=== PATIENT | male | born 1985 | race Two or more races ===

== ENCOUNTER 2022-08-20 20:32 | Emergency (ER) | payer SELFPAY ==
[~2022-08-20] VITALS: Ht 170.2 cm; Wt 94.8 kg
--- NOTE | 2022-08-20 21:17 | NUR ---
BACILIO 102 FROM HOME FOR C/O GEN BODY ACHE. APPEARS INTOXICATED AND ADMITS TO DRINKING ALCOHOL. PT AWAKIE AND ALERT BREATHING UNLABORED. CHANGED INTO GOWN AND PLACED ON MONITOR AND NOTED TACHYCARDIC. LADLE FILLER WAS AT BEDSIDE FOR EVAL.
[2022-08-20] MEDS ORDERED: LORAZEPAM INJ 2 MG/ML VIAL IVP ONE (21:30)
[2022-08-20] MEDS ORDERED: IV NS 0.9% 1,000 ML BAG IV ONE (21:30)
[2022-08-20] MEDS ORDERED: ONDANSETRON 4 MG TAB.RAPDIS PO ONE (21:30)
--- NOTE | 2022-08-20 21:40 | NUR ---
20G IV STARTED AT . BLOOD DRAWN AND SENT TO LAB
[2022-08-20] MEDS ORDERED: LORAZEPAM INJ 2 MG/ML VIAL ONE (21:43)
[2022-08-20] MEDS ORDERED: ONDANSETRON 4 MG TAB.RAPDIS ONE (21:43)
[2022-08-20] MEDS ORDERED: Thiamine 100 MG/ML VIAL ONE (21:43)
[2022-08-20 22:00] LABS: BILIRUBIN,URINE 1+ (NEGATIVE); COLOR,URINE YELLOW (YELLOW); LEUKOCYTE ESTERASE ,URINE NEGATIVE (NEGATIVE); NITRITE, URINE NEGATIVE (NEGATIVE); PROTEIN,URINE NEGATIVE (NEGATIVE); UGLUCOSE 3+ mg/dL (NEGATIVE)
[2022-08-20] MEDS ORDERED: Thiamine 100 MG in IV D5W 50 ML IV SCH (22:00)
[2022-08-20 22:12] LABS: BASOPHILS # (AUTO) 0.1 K/uL (0.0-0.2); BASOPHILS % (AUTO) 0.8 % (0.0-2.0); EOSINOPHILS % (AUTO) 0.8 % (0.0-6.0); HEMATOCRIT 39 % (39-51); HEMOGLOBIN 13.9 g/dL (13.5-17.5); LYMPHOCYTES # (AUTO) 2.5 K/uL (0.8-4.8); LYMPHOCYTES % (AUTO) 41.2 % (20.0-44.0); MEAN CORPUSCULAR HGB CONC 35 g/dl (31.0-36.0); MEAN CORPUSCULAR VOLUME 96 fL (80-96); MONOCYTES # (AUTO) 0.4 K/uL (0.1-1.30); MONOCYTES % (AUTO) 6.6 % (2.0-12.0); NEUTROPHILS # (AUTO) 3.1 K/uL (1.8-8.9); NEUTROPHILS % (AUTO) 50.6 % (43.0-81.0); RED BLOOD CELL COUNT(AUTO) 4.09 MIL/uL (4.5-6.0); WHITE BLOOD COUNT (AUTO) 6.1 K/uL (4.3-11.0)
[2022-08-20 22:32] LABS: BACTERIA,URINE Rare /HPF (None Seen); RBC,URINE 0-2 /HPF (0-2); SQUAMOUS EPITHELIAL CELL,UR Few /HPF (None Seen); WBC,URINE 0-2 /HPF (0-3)
[2022-08-20 22:34] LABS: ALBUMIN 3.2 g/dL (3.4-5.0); BILIRUBIN,DIRECT 1.1 mg/dL (0.0-0.2); BILIRUBIN,TOTAL 1.5 mg/dL (0.2-1.0); CALCIUM, SERUM 8.3 mg/dL (8.5-10.1); CREATININE 0.8 mg/dL (0.6-1.3); POTASSIUM 3.1 mmol/L (3.5-5.1); TOTAL PROTEIN, SERUM 7.1 g/dL (6.4-8.2)
[2022-08-20] MEDS ORDERED: POTASSIUM CHLORIDE 20 MEQ TAB.PRT.SR PO ONE ×2 (22:58→23:00)
[2022-08-20 23:35] LABS: PLATELET COUNT (AUTO) 50 K/uL (150-450)
[2022-08-21] MEDS ORDERED: AZITHROMYCIN 250 MG TABLET PO ONE
[2022-08-21] MEDS ORDERED: GENTAMICIN 80 MG/2 ML VIAL IM ONE
[2022-08-21] MEDS ORDERED: GENTAMICIN 80 MG/2 ML VIAL ONE (00:11)
[2022-08-21] MEDS ORDERED: AZITHROMYCIN 250 MG TABLET ONE (00:12)
[2022-08-21 00:42] LABS: BASOPHILS % (MANUAL) 0 % (0.0-2.0); EOSINOPHILS % (MANUAL) 0 % (0-4); LYMPHOCYTES % (MANUAL) 33 % (16-48); MONOCYTES % (MANUAL) 6 % (0-11.0); NEUTROPHILS % (MANUAL) 61 (42-76)
[2022-08-21] MEDS ORDERED: IBUPROFEN 600 MG TABLET ONE (02:14)
[2022-08-21] MEDS ORDERED: IBUPROFEN 600 MG TABLET PO ONE (02:30)
--- NOTE | 2022-08-21 05:09 | NUR ---
PT AWAKE AND ALERT AMBULATES WITH STEADY GATE. RR EVEN AND UNLABORED.
--- NOTE | 2022-08-21 05:10 | NUR ---
Patient discharged to home in stable condition. Written and verbal after care instructions given. Patient verbalizes understanding of instruction. PT ambulatory with a steady gait IV removed. Catheter intact and site benign. Pressure and 4x4 applied to site. No bleeding noted.
[2022-08-21 06:09] VITALS: BP 121/85
== END 2022-08-21 06:09 | disposition home or self-care (01) ==
LOC: ER 20:34
DX: F10.229 Alcohol dependence with intoxication, unspecified (principal); Y90.8 Blood alcohol level of 240 mg/100 ml or more; E87.6 Hypokalemia; K76.9 Liver disease, unspecified; R73.9 Hyperglycemia, unspecified; Z20.822 Contact with and (suspected) exposure to COVID-19
CPT/HCPCS: 99284; 96365; 96375; 76700; 85025; 80048; 80076; 85007; 81001; 36415; 87426; 80143; 80320; 80307; 87491; 87591; 96372; J2060; J7060 ×2; J3411 ×2; Q0162; C9803; J1580; G0480

== ENCOUNTER 2022-10-22 13:08 | Emergency (ER) | payer SELFPAY ==
[~2022-10-22] VITALS: Ht 177.8 cm; Wt 104.3 kg
--- NOTE | 2022-10-22 13:30 | NUR ---
ETOH, BB EMS to ER after friend called 911.
--- NOTE | 2022-10-22 14:34 | NUR ---
CALLED MANUFACTURING TEAM MEMBER. NO RESPONSE.
--- NOTE | 2022-10-22 14:40 | NUR ---
CALLED SOCIAL, VINCE IS COMING
[2022-10-22] MEDS ORDERED: LORAZEPAM INJ 2 MG/ML VIAL ONE (15:03)
[2022-10-22] MEDS ORDERED: HALOPERIDOL LACTATE INJ 5 MG/ML VIAL ONE (15:03)
--- NOTE | 2022-10-22 15:05 | NUR ---
SS Note: SS consult requested for pt. who was BIBRA from home after friend, Demarco called the paramedics. The pt. is a 36 year old Croatian male who is Turkmen speaking. SW met with pt. at bedside. The pt.'s nurse who is Turkmen speaking provided translation. The pt. is alert & oriented x 3 and makes intense eye contact.The pt. has tangential speech with normal thought process. The pt. denies SI/HI and denies hallucinations. The pt. has dyshoric mood & affect. The pt. stated he does not know why he was brought to the hospital. The pt. states he has body aches possibly secondary to alcohol withdrawal. The pt. states he lives at home (refused to provide address) with a roommate. The pt. stated he drinks alcohol Vodka daily at intervals to prevent withdrawal symptoms. The pt. denies drug use. Per pt. he has been to a rehab in the past. SW provided pt. with alcohol rehab referrals and pt. threw them on the floor. SW asked pt. is there is anyone who we can contact to pick him up when ready for discharge and pt. did not provide radio time salesperson. SW will be available as needed. ELLA provided pt. with the following resources: ADDICTION RESOURCES For Drugs and Alcohol [facility] sober living Referrals For Rehabilitation once sober Address:[address] [place] [address] [facility] Rehabilitation Program [address] [place] [address] Detox/residential [facility] Substance Abuse Helpline ([facility]) Outpatient, residential treatment, recovery support for youth/adults [facility] www.actionfamilycounseling.Eyesquad [facility] Teen programs for drug/alcohol education and support [facility] [place]. Program for adults, sliding scale provides support and education [employer] www.SAMHI Hotelsation.org [place]; Detox/residential treatment programs; transition to sober living [facility] www.cri-help.org [place]; Outpatient and residential treatment programs; transition to sober living [facility] TEL: [phone] I-ADARP Inter Agency Drug Abuse Recovery Tino Lord; Outpatient education and supportive programs for teens and adults [place] [facility] www.oasiswomensrecovery.org [place]; Residential treatment and work program for females only [facility] www.phoSite Organicxwoodford.org [place]: Outpatient/residential treatment program for teens and young adults [facility] www.[facility].org [place] Detox, inpatient, outpatient for adults and youth [facility], [facility]. [facility]; Outpatient programs and referrals to community residential programs. Alcoholics Anonymous -SFV information and meeting and scheduleswww.aa-intergroup.org Mh-Xnla-Prbydbr https://al-sharla.org/ [place] support groups for family of alcoholics. Marijuana Anonymous www.madistrict6.org -SFV listing of meetings Narcotics Anonymous www.na.org SOBER LIVING RESOURCES The [facility] Network www.soberhousing.net A non-profit agency that provides resources to recovery and sober living homes throughout [facility] Men's Sober Living Homes: A Work in Progress[facility]eddy [facility] Recovery Advocates, [place] Sob[facility]George [facility] Hospital[facility] Women's Sober Living Homes: [facility] [address], [place] [facility] Coed Sober Living Homes: [facility] Counseling--Outpatient [facility] [address], [place] [address] (Specializes in in-depth psychotherapy for emotional distress: anxiety, depression, interpersonal conflicts, life transitions, childhood abuse) [facility] [address] [place] [address] (Assist with solving problem marital difficulties, separation & divorce, aging parents, & grief, chronic & terminal illness) [facility] [address] [place] [address] (Deal with loss & grief, anxiety, marital difficulties) Homebound/Mental Health Services [address] [facility] [address] [place] [address] (Provide in-home mental services to people who are incapable of leaving their homes) Organization for Needs of the Elderly Senior Service/Resource Center [address] [place] [address] [facility] [address] [place] [address] Mental Health Services [facility] [address] [place] [address] Services: Outpatient therapy for children, teens, young adults, adults, older adults, and families; Psychiatric services, medication support Psychiatric Outpatient Services [facility] Partial Hospitalization and Intensive Outpatient Program (Managed Care and [place] Only)[address] [facility] [phone] [facility] Partial Hospitalization and Outpatient Bctqlau99[address] [facility] [address] [place], [place] [phone] [facility] Vpa[address] [facility] [address] [place], [place] [phone] [facility] Partial Hospitalization and Outpatient Ouswagv10137 [place], [phone] Crisis and Hotline Telephone Numbers 24-Hour service unless stated [place] Crisis Hotlines: [employer] Mental Health/Crisis Line........[phone] Suicide Prevention Center (24 Hours).......[phone] Suicide Prevention Crisis Center.......[phone] (24 Hours) Assaults Against Women Hotline.........985.187.8939 (24 Hours -- [facility]) Women and Children Crisis [facility]...........[phone] (24 Hours) Child Abuse Hotline............374.250.8648 [facility] Treatment [facility] (24 Hours)..........[phone] Alcoholics Anonymous (24 Hours)..........[phone] Cocaine Anonymous (24 Hours)............[phone] Narcotics Anonymous (24 Hours)..........[phone] [address] [facility] [address], [place], [place] [address]
[2022-10-22] MEDS ORDERED: HALOPERIDOL LACTATE INJ 5 MG/ML VIAL IM ONE (15:30)
[2022-10-22] MEDS ORDERED: LORAZEPAM INJ 2 MG/ML VIAL IM ONE (15:30)
[2022-10-22 15:31] LABS: BASOPHILS % (AUTO) 0.5 % (0.0-2.0); EOSINOPHILS % (AUTO) 0.2 % (0.0-6.0); HEMATOCRIT 49 % (39-51); HEMOGLOBIN 16.6 g/dL (13.5-17.5); LYMPHOCYTES # (AUTO) 3.4 K/uL (0.8-4.8); LYMPHOCYTES % (AUTO) 50.5 % (20.0-44.0); MEAN CORPUSCULAR HGB CONC 34 g/dl (31.0-36.0); MEAN CORPUSCULAR VOLUME 98 fL (80-96); MONOCYTES # (AUTO) 0.4 K/uL (0.1-1.30); MONOCYTES % (AUTO) 5.5 % (2.0-12.0); NEUTROPHILS # (AUTO) 2.9 K/uL (1.8-8.9); NEUTROPHILS % (AUTO) 43.3 % (43.0-81.0); RED BLOOD CELL COUNT(AUTO) 5.01 MIL/uL (4.5-6.0); WHITE BLOOD COUNT (AUTO) 6.8 K/uL (4.3-11.0)
[2022-10-22 15:42] LABS: CALCIUM, SERUM 8.4 mg/dL (8.5-10.1); CREATININE 0.7 mg/dL (0.6-1.3); POTASSIUM 3.5 mmol/L (3.5-5.1)
[2022-10-22 15:49] LABS: ALBUMIN 3.5 g/dL (3.4-5.0); BILIRUBIN,DIRECT 0.8 mg/dL (0.0-0.2); BILIRUBIN,TOTAL 1.2 mg/dL (0.2-1.0); TOTAL PROTEIN, SERUM 7.5 g/dL (6.4-8.2)
[2022-10-22 15:51] LABS: BILIRUBIN,URINE 1+ (NEGATIVE); COLOR,URINE YELLOW (YELLOW); LEUKOCYTE ESTERASE ,URINE NEGATIVE (NEGATIVE); NITRITE, URINE NEGATIVE (NEGATIVE); PROTEIN,URINE TRACE mg/dl (NEGATIVE); UGLUCOSE NEGATIVE (NEGATIVE)
[2022-10-22 16:10] LABS: PLATELET COUNT (AUTO) 46 K/uL (150-450)
[2022-10-22 16:58] LABS: BACTERIA,URINE None seen /HPF (None Seen); RBC,URINE 0-2 /HPF (0-2); SQUAMOUS EPITHELIAL CELL,UR 0-2 /HPF (None Seen); WBC,URINE 0-2 /HPF (0-3)
[2022-10-22 17:11] LABS: LYMPHOCYTES % (MANUAL) 42 % (16-48); MONOCYTES % (MANUAL) 3 % (0-11.0); NEUTROPHILS % (MANUAL) 55 (42-76)
[2022-10-22 19:39] VITALS: BP 132/70
== END 2022-10-22 20:54 | disposition home or self-care (01) ==
LOC: ER 15:37
DX: F10.229 Alcohol dependence with intoxication, unspecified (principal); R45.1 Restlessness and agitation; K70.9 Alcoholic liver disease, unspecified; D69.6 Thrombocytopenia, unspecified; F17.200 Nicotine dependence, unspecified, uncomplicated; Z60.2 Problems related to living alone; Y90.8 Blood alcohol level of 240 mg/100 ml or more
CPT/HCPCS: 99284; 96372 ×2; 85025; 80048; 80076; 85007; 81001; 36415; 80143; 80320; 80307; J2060; J1630; G0480

== ENCOUNTER 2022-11-10 21:47 | Inpatient (IN) | payer MEDICAID ==
[~2022-11-10] VITALS: Ht 170.2 cm; Wt 94.8 kg
--- NOTE | 2022-11-10 22:15 | NUR ---
BIB FRIEND FOR C/O SI ATTEMTPING TO OD ON HIS MEDS. REQUESTING VOLUNTARY PSYCH ADMISSION. PT A/OX3. TOLERATING R/A WELL WITH NO RESP DISTRESS. CHANGED IN GOWN, BELONGINGS IN LOCKER, WANDERED BY SECURITY. SAFETY MEASURES IN PLACE.
[2022-11-10 22:48] LABS: BASOPHILS % (AUTO) 0.3 % (0.0-2.0); EOSINOPHILS % (AUTO) 0.4 % (0.0-6.0); HEMATOCRIT 43 % (39-51); HEMOGLOBIN 14.6 g/dL (13.5-17.5); LYMPHOCYTES # (AUTO) 1.1 K/uL (0.8-4.8); LYMPHOCYTES % (AUTO) 14.3 % (20.0-44.0); MEAN CORPUSCULAR HGB CONC 34 g/dl (31.0-36.0); MEAN CORPUSCULAR VOLUME 99 fL (80-96); MONOCYTES # (AUTO) 0.6 K/uL (0.1-1.30); NEUTROPHILS # (AUTO) 6.2 K/uL (1.8-8.9); PLATELET COUNT (AUTO) 78 K/uL (150-450); RED BLOOD CELL COUNT(AUTO) 4.35 MIL/uL (4.5-6.0)
[2022-11-10 23:26] LABS: BILIRUBIN,URINE 2+ (NEGATIVE); COLOR,URINE YELLOW (YELLOW); LEUKOCYTE ESTERASE ,URINE NEGATIVE (NEGATIVE); NITRITE, URINE POSITIVE (NEGATIVE); PH,URINE 8.5 (5.0-8.0); PROTEIN,URINE TRACE mg/dl (NEGATIVE); UGLUCOSE NEGATIVE (NEGATIVE); UROBILINOGEN,URINE >=8.0 EU/dL (0.2)
[2022-11-10 23:54] LABS: BACTERIA,URINE Many /HPF (None Seen); RBC,URINE 0-2 /HPF (0-2); SQUAMOUS EPITHELIAL CELL,UR Rare /HPF (None Seen); WBC,URINE 0-2 /HPF (0-3)
[2022-11-10 23:55] LABS: URINE AMORPHOUS URATE Moderate /HPF (None Seen)
[2022-11-11 00:06] LABS: EOSINOPHILS % (MANUAL) 1 % (0-4); LYMPHOCYTES % (MANUAL) 21 % (16-48); MONOCYTES % (MANUAL) 4 % (0-11.0); NEUTROPHILS % (MANUAL) 74 (42-76)
[2022-11-11 00:26] LABS: ALANINE AMINOTRANSFERASE 150 U/L (12-78); ALBUMIN 3.1 g/dL (3.4-5.0); ALKALINE PHOSPHATASE 363 U/L (46-116); ASPARTATE AMINOTRANSFERASE 380 U/L (15-37); BILIRUBIN,DIRECT 3.8 mg/dL (0.0-0.2); BILIRUBIN,TOTAL 5.9 mg/dL (0.2-1.0); CALCIUM, SERUM 9.9 mg/dL (8.5-10.1); CARBON DIOXIDE 25 mmol/L (21-32); CHLORIDE 92 mmol/L (98-107); CREATININE 0.7 mg/dL (0.6-1.3); GLUCOSE 187 mg/dL (74-106); POTASSIUM 4.2 mmol/L (3.5-5.1); SODIUM SERUM 131 mmol/L (136-145); TOTAL PROTEIN, SERUM 8.1 g/dL (6.4-8.2); UREA NITROGEN, BLOOD 6 mg/dL (7-18)
[2022-11-11 00:57] LABS: ALCOHOL, BLOOD 70 mg/dL (0-0)
[2022-11-11] MEDS ORDERED: LORAZEPAM 1 MG TABLET ONE (01:24)
[2022-11-11] MEDS ORDERED: GABAPENTIN 300 MG CAPSULE ONE (01:24)
[2022-11-11] MEDS ORDERED: LORAZEPAM 1 MG TABLET PO ONE (01:30)
[2022-11-11] MEDS ORDERED: GABAPENTIN 100 MG CAPSULE PO ONE (01:30)
[2022-11-11] MEDS ORDERED: IOHEXOL-300 100 ML VIAL IV ONE (01:36)
--- NOTE | 2022-11-11 01:50 | NUR ---
PT TAKEN TO CT VIA IGNACIO
[2022-11-11] MEDS ORDERED: METF-440 PO (03:29)
[2022-11-11] MEDS ORDERED: GABA300C PO (03:29)
[2022-11-11] MEDS ORDERED: FOLI0.4T6 PO (03:29)
--- NOTE | 2022-11-11 04:13 | NUR ---
Report given to Solo Alejandre RN for ELVIN
--- NOTE | 2022-11-11 04:39 | NUR ---
PT TANSFERRING TO [phone] VIA HOSPITAL PROTOCOL. ALL BELONGINGS WITH PT. JUNAID
[2022-11-11 04:40] VITALS: BP 147/74
[2022-11-11] MEDS ORDERED: ZOLPIDEM TARTRATE 5 MG TABLET PO PRN (05:00)
[2022-11-11] MEDS ORDERED: IV NS 0.9% 1,000 ML IV PRN (05:00)
[2022-11-11] MEDS ORDERED: LORAZEPAM 1 MG TABLET PO PRN (05:00)
[2022-11-11] MEDS ORDERED: MAG HYDROX/AL HYDROX/SIMETH 30 ML UDC PO PRN (05:00)
[2022-11-11] MEDS ORDERED: MAGNESIUM HYDROXIDE 30 ML UDC PO PRN (05:00)
[2022-11-11] MEDS ORDERED: Z GUARD REMEDY 4 OZ OINT TP PRN (05:00)
--- NOTE | 2022-11-11 05:01 | NUR ---
noc rn note patient does not speak Micronesian. Tried using [employer] Preventive Medicine Officer, no available Slovak pharmacy technologist at this time. Will try again later.
--- NOTE | 2022-11-11 05:24 | NUR ---
noc rn note tried the [employer] can washer again. still no Dominican speaking available at this time.
[2022-11-11 05:57] LABS: BASOPHILS % (AUTO) 0.8 % (0.0-2.0); EOSINOPHILS % (AUTO) 0.6 % (0.0-6.0); HEMATOCRIT 39 % (39-51); HEMOGLOBIN 13.3 g/dL (13.5-17.5); LYMPHOCYTES # (AUTO) 1.4 K/uL (0.8-4.8); LYMPHOCYTES % (AUTO) 24.5 % (20.0-44.0); MEAN CORPUSCULAR HGB CONC 34 g/dl (31.0-36.0); MEAN CORPUSCULAR VOLUME 98 fL (80-96); MONOCYTES # (AUTO) 0.4 K/uL (0.1-1.30); MONOCYTES % (AUTO) 6.8 % (2.0-12.0); NEUTROPHILS # (AUTO) 3.7 K/uL (1.8-8.9); NEUTROPHILS % (AUTO) 67.3 % (43.0-81.0); PLATELET COUNT (AUTO) 65 K/uL (150-450); RED BLOOD CELL COUNT(AUTO) 3.97 MIL/uL (4.5-6.0); WHITE BLOOD COUNT (AUTO) 5.6 K/uL (4.3-11.0)
--- NOTE | 2022-11-11 06:05 | NUR ---
ADMISSION NOTE PATIENT SPEAK VERY LITTLE ZAMBIAN, PHONE AUTO PARTS MANAGER USED AT THIS TIME. PATIENT BROUGHT IN UNIT AT AROUND 0440 AM, ACCOMPANIED BY 1 ER PERSONNEL VIA STRETCHER, PATIENT IS A/OX3-4. NO S/S OF APPARENT DISTRESS IN ROOM AIR. ALREADY C/O 10/10 GENERALIZED PAIN. REPORTS SUICIDAL IDEATION PER PATIENT "HE WILL SLASH HIS WRIST" FURTHER QUESTIONING PATIENT KEPT QUIET AND REFUSED TO ANSWER-- SITTER AT BEDSIDE AT THIS TIME. PATIENT MANIPULATIVE BEHAVIOR WELL. NEW ID BAND ON PATIENT. BELONGINGS CHECKED AND INVENTORIED, PATIENT HAS WALLET AND PHONE ONLY WITH $76. CONTRABAND CONFISCATED -- 1 PACK CIGAR AND COSTUME CUTTER. PATIENT DOES NOT WANT CPR-- MADE FULL CODE FOR NOW. IV ACCESS ON R. AC #20G-- STARTED ON NS @75MLS/HR. NOT COVID AND FLU VACCINATED AND REFUSED TO BE VACCINATED. PATIENT WISHES TO GO TO [facility] WHEN HE GET'S D/C. SAFETY IN PLACE FOR NOW. WILL CONTINUE WITH PATIENT PLAN OF CARE.
[2022-11-11 06:17] LABS: ALBUMIN 2.5 g/dL (3.4-5.0); BILIRUBIN,TOTAL 5.8 mg/dL (0.2-1.0); CALCIUM, SERUM 8.9 mg/dL (8.5-10.1); CREATININE 0.7 mg/dL (0.6-1.3); MAGNESIUM 1.6 mg/dL (1.8-2.4); PHOSPHORUS 4.1 mg/dL (2.5-4.9); POTASSIUM 3.6 mmol/L (3.5-5.1); TOTAL PROTEIN, SERUM 6.7 g/dL (6.4-8.2)
--- NOTE | 2022-11-11 06:28 | NUR ---
noc rn note Contraband confiscated and in the nurse's station. 1 pack cigarette, his wallet with $76, and a quality technician. will endorse to morning shift.
--- NOTE | 2022-11-11 07:09 | NUR ---
noc rn closing note patient in bed with sitter at bed side. comfortably using his phone. no s/s of apparent distress in room air. IV ns running @75mls/hr. all needs attended. all scheduled medications administered. safety in place. will endorse to morning shift rn for continuity of patient care.
--- NOTE | 2022-11-11 07:20 | NUR ---
MS RN OPENING NOTES RECEIVED PATIENT IN BED AWAKE IN NO ACUTE SIGNS OF DISTRESS. 1:1 SITTER AT BEDSIDE FOR CLOSE MONITORING. A/O X 3/4. ABLE TO MAKE NEEDS KNOWN, STILL WITH SUICIDAL IDEATION BUT NO HOMICIDAL IDEATION. ON ROOM AIR, BREATHING EVEN AND UNLABORED, NO SOB NOTED. IV ACCESS ON RAC G#2O INTACT WITH IVF OF NS @ 75ML/HR INFUSING WELL, NO S/S OF INFILTRATION AT SITE NOTED. SAFETY MEASURES IN PLACE: BED IN LOWEST LOCKED POSITION, SR-UP X2 AND CALL LIGHT W/I REACH. WILL CONTINUE TO MONITOR PT CLOSELY.
[2022-11-11 08:00] VITALS: BP 136/86
[2022-11-11] MEDS: FOLIC ACID 1 MG TABLET PO SCH (08:57)
[2022-11-11] MEDS: THIAMINE HCL 100 MG TABLET PO SCH (08:57)
[2022-11-11] MEDS: MULTIVITAMINS,THERAGRAN 1 UDTAB TABLET PO SCH (08:57)
[2022-11-11 09:50] LABS: BAND % (MANUAL) 5 % (0.0-5.0); LYMPHOCYTES % (MANUAL) 33 % (16-48); MONOCYTES % (MANUAL) 7 % (0-11.0); NEUTROPHILS % (MANUAL) 55 (42-76)
[2022-11-11] MEDS: ACETAMINOPHEN 325 MG TABLET PO PRN ×2 (11:15→21:50)
--- NOTE | 2022-11-11 11:19 | NUR ---
RN NOTES PT C/O ACHING PAIN ON BOTH FEET. TYLENOL 650 MG PO GIVEN AT 1115. WILL CONTINUE TO MONITOR.
[2022-11-11] MEDS ORDERED: *INSULIN REGULAR(HUMULIN R)HUM 100 UNIT/ML VIAL SQ PRN (11:30)
[2022-11-11] MEDS ORDERED: MAGNESIUM OXIDE 400 MG TABLET PO ONE (11:30)
[2022-11-11] MEDS ORDERED: DEXTROSE 50%-WATER 50 ML DISP.SYRIN IV PRN (11:30)
[2022-11-11] MEDS: BLOOD SUGAR DIAGNOSTIC 1 EACH STRIP VI SCH ×3 (11:48→22:00)
[2022-11-11] MEDS: INSULIN REGULAR, HUMAN 100 UNIT/ML 3 ML VIAL SQ PRN ×3 (11:55→23:28)
[2022-11-11] MEDS: ONDANSETRON HCL/PF 4 MG/2 ML VIAL IVP PRN (12:14)
--- NOTE | 2022-11-11 12:17 | NUR ---
RN NOTES PT VOMITED MODERATE AMOUNT UNDIGESTED FOOD JUST AFTER EATING. PRN ZOFRAN 4MG/2ML IVP PRN ADMINISTERED AT 1214. WILL CONTINUE TO MONITOR AND REASSESS PT..
--- NOTE | 2022-11-11 13:25 | NUR ---
RN NOTES URINE COLLECTED FOR U/A. CALLED LAB TO FOOTBALL PAD REPAIRER SPECIMEN.
--- NOTE | 2022-11-11 14:30 | NUR ---
RN NOTES IV ACCESS ON RAC 20G NOTED LEAKING AND WAS REMOVED. NO ACTIVE BLEEDING NOTED. DRY DRESSING APPLIED AT SITE. NEW IV ACCESS INSERTED AT LFA 22G AND IVF OF NS AT 75ML/HR RESUMED.
[2022-11-11 16:00] VITALS: BP 136/91
[2022-11-11 16:29] LABS: BILIRUBIN,URINE 2+ (NEGATIVE); COLOR,URINE YELLOW (YELLOW); LEUKOCYTE ESTERASE ,URINE NEGATIVE (NEGATIVE); NITRITE, URINE POSITIVE (NEGATIVE); PH,URINE 6.5 (5.0-8.0); PROTEIN,URINE NEGATIVE (NEGATIVE); UGLUCOSE 3+ mg/dL (NEGATIVE); UROBILINOGEN,URINE >=8.0 EU/dL (0.2)
--- NOTE | 2022-11-11 18:35 | NUR ---
MS RN CLOSING NOTES PT AWAKE AND RESTING IN BED AT THIS TIME. 1:1 SITTER AT BEDSIDE FOR CLOSE MONITORING. A/O X 3/4. ON ROOM AIR, NO ACUTE SIGNS OF DISTRESS DURING SHIFT. IV ACCESS ON LFA #22G INTACT WITH IVF OF NS @ 75ML/HR INFUSING WELL, NO S/S OF INFILTRATION NOTED. NEEDS ATTENDED WELL. SAFETY MEASURES IN PLACE: BED IN LOWEST LOCKED POSITION, SR-UP X2, TRAY TABLE AND CALL LIGHT W/I REACH. WILL ENDORSE ELVIN TO GRAIN COMBINE DRIVER NURSE.
--- NOTE | 2022-11-11 19:20 | NUR ---
MS RN OPENING NOTES RECEIVED PATIENT IN BED AWAKE, ALERT AND ORIENTED. A/O X 3/4. 1:1 SITTER AT BEDSIDE FOR CLOSE MONITORING. ON ROOM AIR, NO ACUTE SIGNS OF DISTRESS DURING SHIFT. IV ACCESS ON LFA #22G INTACT WITH IVF OF NS @ 75ML/HR INFUSING WELL. SAFETY MEASURES GIVEN WITH BED IN LOWEST LOCKED POSITION. SIDE RAILS X 2. CALL LIGHT AND TABLE ON REACH. WILL CONTINUE WITH THE PLAN OF CARE.
[2022-11-11] MEDS: GABAPENTIN 300 MG CAPSULE PO SCH ×2 (22:00→23:10)
--- NOTE | 2022-11-11 22:50 | NUR ---
RN NOTES PATIENT REQUESTED TO STOP THE IV.
--- NOTE | 2022-11-11 23:05 | NUR ---
RN NOTES PATIENT VERBALIZED PAIN. NORCO GIVEN.
[2022-11-12 04:24] VITALS: BP 104/53
[2022-11-12] MEDS: ACETAMINOPHEN 325 MG TABLET PO PRN ×3 (05:32→19:28)
[2022-11-12 05:55] LABS: BASOPHILS % (AUTO) 0.4 % (0.0-2.0); EOSINOPHILS % (AUTO) 1.3 % (0.0-6.0); HEMATOCRIT 38 % (39-51); HEMOGLOBIN 12.9 g/dL (13.5-17.5); LYMPHOCYTES # (AUTO) 1.3 K/uL (0.8-4.8); LYMPHOCYTES % (AUTO) 23.2 % (20.0-44.0); MEAN CORPUSCULAR HGB CONC 34 g/dl (31.0-36.0); MEAN CORPUSCULAR VOLUME 99 fL (80-96); MONOCYTES # (AUTO) 0.4 K/uL (0.1-1.30); MONOCYTES % (AUTO) 6.7 % (2.0-12.0); NEUTROPHILS # (AUTO) 3.9 K/uL (1.8-8.9); NEUTROPHILS % (AUTO) 68.4 % (43.0-81.0); PLATELET COUNT (AUTO) 64 K/uL (150-450); RED BLOOD CELL COUNT(AUTO) 3.81 MIL/uL (4.5-6.0); WHITE BLOOD COUNT (AUTO) 5.7 K/uL (4.3-11.0)
[2022-11-12 06:17] LABS: ALBUMIN 2.5 g/dL (3.4-5.0); BILIRUBIN,DIRECT 4.5 mg/dL (0.0-0.2); BILIRUBIN,TOTAL 6.2 mg/dL (0.2-1.0); CALCIUM, SERUM 8.6 mg/dL (8.5-10.1); CREATININE 0.7 mg/dL (0.6-1.3); MAGNESIUM 1.9 mg/dL (1.8-2.4); PHOSPHORUS 3.6 mg/dL (2.5-4.9); POTASSIUM 3.6 mmol/L (3.5-5.1); TOTAL PROTEIN, SERUM 6.7 g/dL (6.4-8.2)
[2022-11-12] MEDS: INSULIN REGULAR, HUMAN 100 UNIT/ML 3 ML VIAL SQ PRN ×3 (07:08→17:13)
[2022-11-12] MEDS: BLOOD SUGAR DIAGNOSTIC 1 EACH STRIP VI SCH ×4 (07:09→21:34)
--- NOTE | 2022-11-12 07:30 | NUR ---
MS RN CLOSING NOTES PATIENT IN BED AWAKE, ALERT AND ORIENTED. A/O X 3-4 1:1 SITTER AT BEDSIDE FOR CLOSE MONITORING. ON ROOM AIR, NO ACUTE SIGNS OF DISTRESS DURING SHIFT. IV ACCESS ON LFA #22G, REFUSED TO CONTINUE IV FLUID. SAFETY MEASURES GIVEN WITH BED IN LOWEST AND LOCKED POSITION. SIDE RAILS X 2. CALL LIGHT AND TRAY WITHIN REACH. WILL ENDORSE TO THE NEXT SHIFT FOR THE CONTINUITY OF CARE.
--- NOTE | 2022-11-12 07:30 | NUR ---
RN MS NOTES PT IN BED, AWAKE, ALERT AND ORIENTED, NO COMPLAINT OF PAIN, NOT IN DISTRESS, CALL LIGHT WITHIN REACH, NO BEHAVIOR PROBLEM AT THIS TIME, NEEDS ATTENDED.
[2022-11-12 08:00] VITALS: BP_SYST 118; BP_SYST 124; BP_DIAS 80
[2022-11-12] MEDS: MULTIVITAMINS,THERAGRAN 1 UDTAB TABLET PO SCH (08:33)
[2022-11-12] MEDS: THIAMINE HCL 100 MG TABLET PO SCH (08:33)
[2022-11-12] MEDS: FOLIC ACID 1 MG TABLET PO SCH (08:33)
--- NOTE | 2022-11-12 08:57 | NUR ---
RN NOTES PT SEEN AND EXAMINED BY DR. BASURTO, PLAN OF CARE DISCUSSED WITH PT, VERBALIZED UNDERSTANDING.
[2022-11-12] MEDS ORDERED: SITAGLIPTIN PHOSPHATE 50 MG TABLET PO SCH (09:00)
[2022-11-12 12:40] LABS: BAND % (MANUAL) 3 % (0.0-5.0); BASOPHILS % (MANUAL) 0 % (0.0-2.0); EOSINOPHILS % (MANUAL) 1 % (0-4); LYMPHOCYTES % (MANUAL) 26 % (16-48); MONOCYTES % (MANUAL) 9 % (0-11.0); NEUTROPHILS % (MANUAL) 61 (42-76)
[2022-11-12] MEDS: DULOXETINE HCL 30 MG CAPSULE.DR PO SCH (14:18)
[2022-11-12 16:00] VITALS: BP 124/80
[2022-11-12] MEDS: DOCUSATE SODIUM 100 MG CAPSULE PO SCH (16:26)
[2022-11-12 17:00] VITALS: BP 118/80
--- NOTE | 2022-11-12 18:15 | NUR ---
RN MS NOTES PT IN BED, RESTING, NO COMPLAINT OF PAIN OR ANY DISCOMFORT AT THIS TIME, PM CARE PROVIDED, PT ABLE TO AMBULATE TO THE BATHROOM WITH STEADY GAIT, NO BEHAVIOR PROBLEM NOTED, BS CHECKED, NO S/S OF HYPER/HYPOGLYCEMIA NOTED, NEEDS ATTENDED.
--- NOTE | 2022-11-12 19:30 | NUR ---
RN NOTES PRN TYLENOL 650 MG GIVEN FOR PAIN AT 1928. WILL REASSESS IN 1 HOUR.
--- NOTE | 2022-11-12 19:30 | NUR ---
MS RN OPENING NOTES RECEIVED PATIENT AWAKE IN BED . PATIENT IS ALERT AND ORIENTED TIMES 4. AMHARIC AND IRISH SPEAKER. ABLE TO MAKE NEEDS KNOWN. COMPLAIN OF PAIN. WILL GIVE TYLENOL 650 MG. PATIENT IS ON 1:1 SITTER AT BEDSIDE FOR CLOSE MONITORING. PATIENT IS ON ROOM AIR, TOLERATING WELL. NO ACUTE SIGNS OF DISTRESS DURING SHIFT NOTED. IV ACCESS ON LFA G #20 INTACT AND FLUSHING WELL. PATIENT REFUSED IV HYDRATION. ALL SAFETY MEASURES IN PLACE. BED IN LOWEST LOCKED POSITION. SIDE RAILS X 2. CALL LIGHT AND TABLE ON REACH. WILL CONTINUE TO MONITOR CLOSELY.
--- NOTE | 2022-11-12 19:35 | NUR ---
RN NOTES PRN ZOFRAN GIVEN AT 1937 FOR NAUSEA. PER PATIENT'S REQUEST.
[2022-11-12] MEDS: ONDANSETRON HCL/PF 4 MG/2 ML VIAL IVP PRN (19:37)
[2022-11-12] MEDS: TRAZODONE 50 MG TABLET PO SCH (21:15)
[2022-11-12] MEDS: GABAPENTIN 300 MG CAPSULE PO SCH (21:15)
--- NOTE | 2022-11-13 01:46 | NUR ---
RN NOTES PRN ATIVAN 1 MG PO GIVEN TO THE PATIENT AT 0134 FOR ANXIETY.
[2022-11-13] MEDS: BLOOD SUGAR DIAGNOSTIC 1 EACH STRIP VI SCH ×4 (06:06→21:38)
[2022-11-13] MEDS: INSULIN REGULAR, HUMAN 100 UNIT/ML 3 ML VIAL SQ PRN ×3 (06:07→21:44)
--- NOTE | 2022-11-13 06:22 | NUR ---
MS RN CLOSING NOTES PATIENT AWAKE IN BED . PATIENT IS ALERT AND ORIENTED TIMES 4. CITIZEN OF [place] AND UPPER SORBI[place] SPEAKER. ABLE TO MAKE NEEDS KNOWN. NO PAIN NOTED. NO ANXIETY NOTED. PATIENT IS ON 1:1 SITTER AT BEDSIDE FOR CLOSE MONITORING FO SI. PATIENT IS ON ROOM AIR, TOLERATING WELL. NO ACUTE SIGNS OF DISTRESS DURING SHIFT NOTED. IV ACCESS ON LFA G #20 INTACT AND FLUSHING WELL. PATIENT REFUSED IV HYDRATION. ALL DUE MEDS GIVEN ORDERED.ALL SAFETY MEASURES IN PLACE. BED IN LOWEST LOCKED POSITION. SIDE RAILS X 2. CALL LIGHT AND TABLE ON REACH. WILL ENDORSE FOR ELVIN.
[2022-11-13 06:45] LABS: ALBUMIN 2.6 g/dL (3.4-5.0)
[2022-11-13] MEDS: LORAZEPAM INJ 2 MG/ML VIAL IV PRN (07:21)
--- NOTE | 2022-11-13 07:40 | NUR ---
RN OPENING NOTE- PT AWAKE IN BED . AOX4, ZAMBIAN AND KYRGYZ SPEAKER. ABLE TO MAKE NEEDS KNOWN. PATIENT IS ON 1:1 SITTER AT BEDSIDE FOR CLOSE MONITORING +SI AT TIMES. PATIENT IS ON ROOM AIR, TOLERATING WELL. NO ACUTE SIGNS OF DISTRESS DURING SHIFT NOTED. IV ACCESS ON LFA G #20 INTACT . ANXIOUS AND RESTLESS. ATIVAN 1 MG IV ADMINISTERED. MONITOR FOR WITHDRAWAL SX. ALL SAFETY MEASURES IN PLACE. BED IN LOWEST LOCKED POSITION. SIDE RAILS X 2. CALL LIGHT AND TABLE ON REACH. WILL CONTINUE TO MONITOR/ ASSIST.
[2022-11-13 08:04] LABS: BILIRUBIN,DIRECT 5.2 mg/dL (0.0-0.2); BILIRUBIN,TOTAL 6.6 mg/dL (0.2-1.0)
[2022-11-13] MEDS: LINAGLIPTIN 5 MG TABLET PO SCH (08:34)
[2022-11-13] MEDS: THIAMINE HCL 100 MG TABLET PO SCH (08:35)
[2022-11-13] MEDS: DULOXETINE HCL 30 MG CAPSULE.DR PO SCH (08:35)
[2022-11-13] MEDS: FOLIC ACID 1 MG TABLET PO SCH (08:35)
[2022-11-13] MEDS: DOCUSATE SODIUM 100 MG CAPSULE PO SCH ×2 (08:35→16:33)
[2022-11-13] MEDS: MULTIVITAMINS,THERAGRAN 1 UDTAB TABLET PO SCH (08:35)
[2022-11-13 08:39] LABS: CALCIUM, SERUM 9.3 mg/dL (8.5-10.1); CREATININE 0.8 mg/dL (0.6-1.3); MAGNESIUM 1.9 mg/dL (1.8-2.4); PHOSPHORUS 5.1 mg/dL (2.5-4.9); POTASSIUM 4.3 mmol/L (3.5-5.1)
[2022-11-13 09:25] LABS: HEMATOCRIT 40 % (39-51); HEMOGLOBIN 13.5 g/dL (13.5-17.5); MEAN CORPUSCULAR HGB CONC 34 g/dl (31.0-36.0); MEAN CORPUSCULAR VOLUME 100 fL (80-96); PLATELET COUNT (AUTO) 77 K/uL (150-450); RED BLOOD CELL COUNT(AUTO) 3.96 MIL/uL (4.5-6.0); WHITE BLOOD COUNT (AUTO) 6.8 K/uL (4.3-11.0)
[2022-11-13] MEDS: GABAPENTIN 100 MG CAPSULE PO SCH ×2 (10:09→16:33)
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
[2022-11-13] MEDS: CHLORDIAZEPOXIDE HCL 25 MG CAPSULE PO SCH ×2 (11:54→16:33)
[2022-11-13 16:39] LABS: BAND % (MANUAL) 4 % (0.0-5.0); EOSINOPHILS % (MANUAL) 2 % (0-4); LYMPHOCYTES % (MANUAL) 21 % (16-48); MONOCYTES % (MANUAL) 3 % (0-11.0); NEUTROPHILS % (MANUAL) 70 (42-76)
--- NOTE | 2022-11-13 18:29 | NUR ---
RN CLOSING NOTE- PT ASLEEP, EASILY AWAKENED . AOX4, TELUGU AND SWEDISH SPEAKER. ABLE TO MAKE NEEDS KNOWN. PATIENT IS ON 1:1 SITTER AT BEDSIDE FOR CLOSE MONITORING +SI AT TIMES. PATIENT IS ON ROOM AIR, TOLERATING WELL. NO ACUTE SIGNS OF DISTRESS DURING SHIFT NOTED. C/O LEG PAIN RELIEVED NOW W GABAPENTIN TID, IV ACCESS ON LFA G #20 INTACT . ANXIOUS AND RESTLESS. LIBRIUM TID FOR WITHDRAWAL SX.. ALL SAFETY MEASURES IN PLACE. BED IN LOWEST LOCKED POSITION. SIDE RAILS X 2. CALL LIGHT AND TABLE ON REACH. WILL CONTINUE TO MONITOR/ ASSIST.
--- NOTE | 2022-11-13 19:15 | NUR ---
MS RN OPENING NOTES RECEIVED PT AWAKE IN BED, TALKING ON THE PHONE. AOX4, PRIMARILY SERBIAN SPEAKING, UNDERSTANDS SOME TAJIK. ABLE TO MAKE NEEDS KNOWN. PATIENT IS ON 1:1 SITTER AT BEDSIDE FOR CLOSE MONITORING +SI AT TIMES. PATIENT IS ON ROOM AIR, TOLERATING WELL. NO ACUTE SIGNS OF DISTRESS DURING SHIFT NOTED. IV ACCESS ON LFA G #20 INTACT SL. REFUSES IV FLUIDS. PT STATES HE JUST DON'T WANT IT WITH NO SPECIFIC REASONS. EXPLAINED TO PT RISK/BENEFITS, VERBALIZED UNDERSTANDING. ALL SAFETY MEASURES IN PLACE. BED IN LOWEST LOCKED POSITION. SIDE RAILS X 2. CALL LIGHT AND TABLE ON REACH. WILL CONTINUE TO MONITOR/ ASSIST.
[2022-11-13 20:00] VITALS: BP 117/78
[2022-11-13] MEDS: GABAPENTIN 300 MG CAPSULE PO SCH (21:29)
[2022-11-13] MEDS: TRAZODONE 50 MG TABLET PO SCH (21:29)
[2022-11-14] MEDS: LORAZEPAM INJ 2 MG/ML VIAL IV PRN (05:26)
[2022-11-14 05:47] LABS: BASOPHILS % (AUTO) 0.6 % (0.0-2.0); HEMATOCRIT 38 % (39-51); HEMOGLOBIN 13.1 g/dL (13.5-17.5); LYMPHOCYTES # (AUTO) 1.5 K/uL (0.8-4.8); MEAN CORPUSCULAR HGB CONC 34 g/dl (31.0-36.0); MEAN CORPUSCULAR VOLUME 99 fL (80-96); MONOCYTES # (AUTO) 0.7 K/uL (0.1-1.30); MONOCYTES % (AUTO) 8.9 % (2.0-12.0); NEUTROPHILS # (AUTO) 5.1 K/uL (1.8-8.9); NEUTROPHILS % (AUTO) 69.5 % (43.0-81.0); PLATELET COUNT (AUTO) 82 K/uL (150-450); RED BLOOD CELL COUNT(AUTO) 3.84 MIL/uL (4.5-6.0); WHITE BLOOD COUNT (AUTO) 7.4 K/uL (4.3-11.0)
[2022-11-14 06:12] LABS: CALCIUM, SERUM 8.9 mg/dL (8.5-10.1); CREATININE 0.6 mg/dL (0.6-1.3); MAGNESIUM 1.9 mg/dL (1.8-2.4); PHOSPHORUS 4.1 mg/dL (2.5-4.9); POTASSIUM 3.9 mmol/L (3.5-5.1)
[2022-11-14 06:15] LABS: ALBUMIN 2.3 g/dL (3.4-5.0); BILIRUBIN,DIRECT 4.9 mg/dL (0.0-0.2); BILIRUBIN,TOTAL 6.1 mg/dL (0.2-1.0); TOTAL PROTEIN, SERUM 6.5 g/dL (6.4-8.2)
--- NOTE | 2022-11-14 06:58 | NUR ---
MS RN CLOSING NOTES PT SLEEPING IN BED AT THIS TIME, EASILY AROUSED.AOX4, PRIMARILY WELSH SPEAKING, UNDERSTANDS SOME ITALIAN. ABLE TO MAKE NEEDS KNOWN. PATIENT IS ON 1:1 SITTER AT BEDSIDE FOR CLOSE MONITORING +SI AT TIMES. STABLE ON ROOM AIR, TOLERATING WELL. NO ACUTE SIGNS OF DISTRESS DURING SHIFT NOTED. IV ACCESS ON LFA G #20 INTACT SL. REFUSES IV FLUIDS. PT STATES HE JUST DON'T WANT IT WITH NO SPECIFIC REASONS. EXPLAINED TO PT RISK/BENEFITS, VERBALIZED UNDERSTANDING. ALL CARE PROVIDED AND MEDS TOLERATED WELL. ALL SAFETY MEASURES MAINTAINED. BED IN LOWEST LOCKED POSITION. SIDE RAILS X 2. CALL LIGHT AND TABLE ON REACH. WILL ENDORSE ELVIN TO DAY SHIFT NURSE.
[2022-11-14] MEDS: BLOOD SUGAR DIAGNOSTIC 1 EACH STRIP VI SCH ×4 (07:06→21:53)
--- NOTE | 2022-11-14 07:06 | NUR ---
RN NOTES PT REFUSED BLOOD SUGAR CHECK. STATES HE JUST WANTS TO SLEEP BECAUSE HE DIDNT GET TO SLEEP MUCH LAST NIGHT. WILL ENDORSE.
--- NOTE | 2022-11-14 07:40 | NUR ---
RN OPENING NOTE- PT AWAKE IN BED . NO CHANGES, AOX4, ROMANIAN AND IRISH SPEAKER. ABLE TO MAKE NEEDS KNOWN. PATIENT IS ON 1:1 SITTER AT BEDSIDE FOR CLOSE MONITORING +SI AT TIMES. PATIENT IS ON ROOM AIR, TOLERATING WELL. NO ACUTE SIGNS OF DISTRESS DURING SHIFT NOTED. IV ACCESS ON LFA G #20 MONITOR FOR WITHDRAWAL SX. ALL SAFETY MEASURES IN PLACE. BED IN LOWEST LOCKED POSITION. SIDE RAILS X 2. CALL LIGHT AND TABLE ON REACH. WILL CONTINUE TO MONITOR/ ASSIST.
[2022-11-14] MEDS: CHLORDIAZEPOXIDE HCL 25 MG CAPSULE PO SCH ×2 (08:36→16:18)
[2022-11-14] MEDS: GABAPENTIN 100 MG CAPSULE PO SCH ×2 (08:36→16:19)
[2022-11-14] MEDS: DULOXETINE HCL 30 MG CAPSULE.DR PO SCH (08:36)
[2022-11-14] MEDS: THIAMINE HCL 100 MG TABLET PO SCH (08:36)
[2022-11-14] MEDS: LINAGLIPTIN 5 MG TABLET PO SCH (08:36)
[2022-11-14] MEDS: DOCUSATE SODIUM 100 MG CAPSULE PO SCH ×2 (08:37→16:19)
[2022-11-14] MEDS: MULTIVITAMINS,THERAGRAN 1 UDTAB TABLET PO SCH (08:37)
[2022-11-14] MEDS: FOLIC ACID 1 MG TABLET PO SCH (08:37)
[2022-11-14] MEDS ORDERED: IV NS 0.9% 1,000 ML IV PRN (09:19)
[2022-11-14] MEDS: SODIUM CHLORIDE 1000 MG TABLET PO SCH (11:09)
[2022-11-14 11:47] LABS: BAND % (MANUAL) 2 % (0.0-5.0); EOSINOPHILS % (MANUAL) 4 % (0-4); LYMPHOCYTES % (MANUAL) 25 % (16-48); MONOCYTES % (MANUAL) 7 % (0-11.0); NEUTROPHILS % (MANUAL) 62 (42-76)
[2022-11-14] MEDS: INSULIN REGULAR, HUMAN 100 UNIT/ML 3 ML VIAL SQ PRN ×3 (11:48→21:57)
[2022-11-14 17:50] VITALS: BP 122/80
--- NOTE | 2022-11-14 18:26 | NUR ---
RN CLOSING NOTE- PT AWAKE IN BED . REFUSES IVF, DR BASURTO ENCOURAGED IVF TO INCREASE NA LEVEL. PT REFUSED BUT TOOK NA PO TABS. NA INCREASED FROM 127 TO 129. WILL HAVE 2100 DOSE NA. RECHECK IN AM, PATIENT IS ON 1:1 SITTER AT BEDSIDE FOR CLOSE MONITORING +SI AT TIMES. PATIENT IS ON ROOM AIR, TOLERATING WELL. NO ACUTE SIGNS OF DISTRESS DURING SHIFT NOTED. IV ACCESS ON LFA G #20 MONITOR FOR WITHDRAWAL SX. ALL SAFETY MEASURES IN PLACE. BED IN LOWEST LOCKED POSITION. SIDE RAILS X 2. CALL LIGHT AND TABLE ON REACH. WILL CONTINUE TO MONITOR/ ASSIST.
--- NOTE | 2022-11-14 19:15 | NUR ---
MS RN OPENING NOTES RECEIVED PT AWAKE IN BED, CHANGING GOWN. AOX4, PRIMARILY LIBYAN/RWANDAN SPEAKING, UNDERSTANDS SOME BHUTANESE. ABLE TO MAKE NEEDS KNOWN. ON RA, TOLERATING WELL. NO ACUTE SIGNS OF DISTRESS DURING SHIFT NOTED. 1:1 SITTER DISCONTINUED PER MD ORDERS. IV ACCESS ON LFA G #20 INTACT SL. REFUSES IV FLUIDS. PT STATES HE JUST DON'T WANT IT WITH NO SPECIFIC REASONS. EXPLAINED TO PT RISK/BENEFITS, VERBALIZED UNDERSTANDING. ALL SAFETY MEASURES IN PLACE. BED IN LOWEST LOCKED POSITION. SIDE RAILS X 2. CALL LIGHT AND TRAY TABLE WITHIN REACH. WILL CONTINUE TO MONITOR AND ASSIST.
[2022-11-14 20:00] VITALS: BP 104/76
[2022-11-14] MEDS ORDERED: SODIUM CHLORIDE 1000 MG TABLET PO ONE (21:00)
[2022-11-14] MEDS: TRAZODONE 50 MG TABLET PO SCH (21:16)
[2022-11-14] MEDS: GABAPENTIN 300 MG CAPSULE PO SCH (21:16)
[2022-11-15] MEDS: ACETAMINOPHEN 325 MG TABLET PO PRN ×2 (02:31→14:55)
[2022-11-15 05:50] LABS: BASOPHILS # (AUTO) 0.1 K/uL (0.0-0.2); BASOPHILS % (AUTO) 0.9 % (0.0-2.0); EOSINOPHILS % (AUTO) 1.2 % (0.0-6.0); HEMATOCRIT 39 % (39-51); HEMOGLOBIN 13.2 g/dL (13.5-17.5); LYMPHOCYTES # (AUTO) 1.5 K/uL (0.8-4.8); LYMPHOCYTES % (AUTO) 23.4 % (20.0-44.0); MEAN CORPUSCULAR HGB CONC 34 g/dl (31.0-36.0); MEAN CORPUSCULAR VOLUME 101 fL (80-96); MONOCYTES # (AUTO) 0.7 K/uL (0.1-1.30); MONOCYTES % (AUTO) 10.8 % (2.0-12.0); NEUTROPHILS # (AUTO) 4.2 K/uL (1.8-8.9); NEUTROPHILS % (AUTO) 63.7 % (43.0-81.0); PLATELET COUNT (AUTO) 103 K/uL (150-450); RED BLOOD CELL COUNT(AUTO) 3.82 MIL/uL (4.5-6.0); WHITE BLOOD COUNT (AUTO) 6.6 K/uL (4.3-11.0)
[2022-11-15 06:10] LABS: CALCIUM, SERUM 9.4 mg/dL (8.5-10.1); CREATININE 0.7 mg/dL (0.6-1.3); MAGNESIUM 2.1 mg/dL (1.8-2.4); PHOSPHORUS 4.5 mg/dL (2.5-4.9); POTASSIUM 4.5 mmol/L (3.5-5.1)
[2022-11-15] MEDS: BLOOD SUGAR DIAGNOSTIC 1 EACH STRIP VI SCH ×3 (06:30→17:06)
[2022-11-15] MEDS: INSULIN REGULAR, HUMAN 100 UNIT/ML 3 ML VIAL SQ PRN ×2 (06:34→17:56)
--- NOTE | 2022-11-15 06:45 | NUR ---
MS RN CLOSING NOTES PT AWAKE IN BED WATCHING TV AT THIS TIME. AOX4, PRIMARILY [place]ER SPEAKING, UNDERSTANDS SOME [place]. ABLE TO MAKE NEEDS KNOWN. STABLE ON RA, TOLERATING WELL. NO ACUTE SIGNS OF DISTRESS DURING SHIFT NOTED. IV ACCESS ON LFA #20G INTACT SL. REFUSED IV FLUIDS. ALL CARE PROVIDED AND MEDS TOLERATED WELL. ALL SAFETY MEASURES MAINTAINED: BED IN LOWEST LOCKED POSITION, SIDE RAILS X2, CALL LIGHT AND TRAY TABLE WITHIN REACH. WILL ENDORSE ELVIN TO DAY SHIFT NURSE.
--- NOTE | 2022-11-15 07:42 | NUR ---
RN Opening Note Patient AOx4 able to express own concerns. Sleeping, easily aroused. Patient states no complaints, no signs of distress or discomfort. All safety precautions taken, call light and table within reach and bed at lowest position.
[2022-11-15 08:00] VITALS: BP 119/80
[2022-11-15] MEDS: MULTIVITAMINS,THERAGRAN 1 UDTAB TABLET PO SCH (08:30)
[2022-11-15] MEDS: CHLORDIAZEPOXIDE HCL 25 MG CAPSULE PO SCH (08:30)
[2022-11-15] MEDS: GABAPENTIN 100 MG CAPSULE PO SCH ×2 (08:30→17:06)
[2022-11-15] MEDS: DOCUSATE SODIUM 100 MG CAPSULE PO SCH ×2 (08:31→17:06)
[2022-11-15] MEDS: DULOXETINE HCL 30 MG CAPSULE.DR PO SCH (08:31)
[2022-11-15] MEDS: FOLIC ACID 1 MG TABLET PO SCH (08:31)
[2022-11-15] MEDS: THIAMINE HCL 100 MG TABLET PO SCH (08:31)
[2022-11-15] MEDS: LINAGLIPTIN 5 MG TABLET PO SCH (08:32)
[2022-11-15] MEDS: SODIUM CHLORIDE 1000 MG TABLET PO SCH (08:32)
[2022-11-15 16:00] VITALS: BP 122/76
[2022-11-15] MEDS ORDERED: SODI100037 PO ×2 (17:34→18:01)
[2022-11-15] MEDS ORDERED: DULO30CA2 PO ×2 (17:34→18:01)
[2022-11-15] MEDS ORDERED: TRAZ-252 PO ×2 (17:34→18:01)
[2022-11-15] MEDS ORDERED: LINA5TAB PO ×2 (17:34→18:01)
[2022-11-15] MEDS ORDERED: MULT-24 PO ×2 (17:34→18:01)
[2022-11-15] MEDS ORDERED: Thiamine HCL PO (17:34)
[2022-11-15] MEDS ORDERED: DOCU100C36 PO ×2 (17:34→18:01)
[2022-11-15] MEDS ORDERED: THIA100T88 PO (17:35)
[2022-11-15] MEDS ORDERED: THIA100T74 PO (18:01)
--- NOTE | 2022-11-15 18:18 | NUR ---
cardiovascular technologist Note Patient AOx4 able to express his concerns. Patient verbalizes discharge agreement. IV removed and dressing applied, no sign of infiltration. All safety precautions taken, patient wheeled safely to main entrance. Prescription information given along with all his belongings.
== END 2022-11-15 18:25 | disposition home or self-care (01) | DRG 280 ==
LOC: ER 21:51 → MED 11-11 04:35
PROVIDERS: ADMIT Student in an Organized Health Care Education/Training Program; ATTEND Student in an Organized Health Care Education/Training Program
DX: K70.10 Alcoholic hepatitis without ascites (principal); D69.6 Thrombocytopenia, unspecified; R45.851 Suicidal ideations; E44.0 Moderate protein-calorie malnutrition; E87.1 Hypo-osmolality and hyponatremia; E88.09 Other disorders of plasma-protein metabolism, not elsewhere classified; D64.9 Anemia, unspecified; R74.01 Elevation of levels of liver transaminase levels; Y90.3 Blood alcohol level of 60-79 mg/100 ml; Z20.822 Contact with and (suspected) exposure to COVID-19; Z53.20 Procedure and treatment not carried out because of patient's decision for unspecified reasons; E11.9 Type 2 diabetes mellitus without complications; Z79.84 Long term (current) use of oral hypoglycemic drugs; Z79.899 Other long term (current) drug therapy; Z91.51 Personal history of suicidal behavior; F32.A Depression, unspecified; F10.139 Alcohol abuse with withdrawal, unspecified
CPT/HCPCS: 36415; 76705-TC; 80048-TC; 80053-TC; 80061-TC; 80076-TC; 81001; 82962-TC; 83735-TC; 84100-TC; 84295-TC; 85025-TC; 87081-TC; 87086-TC; 97116-TC; 97530-TC; C9803; G0378; G0480; J1815; J2060; J2405; J7030; Q9967

== ENCOUNTER 2023-09-25 15:16 | Emergency (ER) | payer MEDICAID ==
[~2023-09-25] VITALS: Ht 172.7 cm; Wt 97.1 kg
[~2023-09-25 15:16] MED LIST: DOCU100C36 PO; DULO30CA2 PO; FOLI0.4T6 PO; GABA300C PO; LINA5TAB PO; METF-440 PO; MULT-24 PO; SODI100037 PO; THIA100T74 PO; TRAZ-252 PO
[2023-09-25] MEDS ORDERED: ONDANSETRON HCL/PF 4 MG/2 ML VIAL ONE ×2 (15:59→23:04)
[2023-09-25] MEDS ORDERED: ONDANSETRON HCL/PF 4 MG/2 ML VIAL IVP ONE (16:00)
[2023-09-25] MEDS ORDERED: IV NS 0.9% 1,000 ML BAG IV ONE (16:00)
[2023-09-25 16:04] LABS: BASOPHILS % (AUTO) 0.4 % (0.0-2.0); EOSINOPHILS # (AUTO) 0.1 K/uL (0.0-0.7); EOSINOPHILS % (AUTO) 0.8 % (0.0-6.0); HEMATOCRIT 48 % (39-51); HEMOGLOBIN 16.2 g/dL (13.5-17.5); LYMPHOCYTES # (AUTO) 2.4 K/uL (0.8-4.8); LYMPHOCYTES % (AUTO) 34.5 % (20.0-44.0); MEAN CORPUSCULAR HEMOGLOBIN 33 PG (26.0-33.0); MEAN CORPUSCULAR HGB CONC 34 g/dl (31.0-36.0); MEAN CORPUSCULAR VOLUME 97 fL (80-96); MONOCYTES # (AUTO) 0.6 K/uL (0.1-1.30); MONOCYTES % (AUTO) 8.3 % (2.0-12.0); NEUTROPHILS # (AUTO) 3.8 K/uL (1.8-8.9); PLATELET COUNT (AUTO) 74 K/uL (150-450); RED CELL DISTRIBUTION WIDTH 13.2 % (11.5-15.0); WHITE BLOOD COUNT (AUTO) 6.9 K/uL (4.3-11.0)
[2023-09-25 16:18] LABS: CALCIUM, SERUM 7.9 mg/dL (8.5-10.1); CARBON DIOXIDE 16 mmol/L (21-32); CHLORIDE 98 mmol/L (98-107); CREATININE 0.7 mg/dL (0.6-1.3); GLUCOSE 273 mg/dL (74-106); POTASSIUM 3.2 mmol/L (3.5-5.1); SODIUM SERUM 136 mmol/L (136-145); UREA NITROGEN, BLOOD 5 mg/dL (7-18)
[2023-09-25 16:29] LABS: LACTIC ACID 4.1 mmol/L (0.4-2.0)
[2023-09-25 16:33] LABS: ALANINE AMINOTRANSFERASE 127 U/L (12-78); ALBUMIN 3.5 g/dL (3.4-5.0); ALKALINE PHOSPHATASE 133 U/L (46-116); ASPARTATE AMINOTRANSFERASE 149 U/L (15-37); BILIRUBIN,DIRECT 0.6 mg/dL (0.0-0.2); BILIRUBIN,TOTAL 1.1 mg/dL (0.2-1.0); LIPASE 38 U/L (16-77); TOTAL PROTEIN, SERUM 7.3 g/dL (6.4-8.2)
[2023-09-25 16:37] LABS: ACETAMINOPHEN <10 ug/ml (10-30); ALCOHOL, BLOOD < 3 mg/dL (0-10); SALICYLATE < 0.2 mg/dL (2.8-20.0)
[2023-09-25 16:48] LABS: SITE, VBG Right Radial; VBG BASE EXCESS -3.8 mmol/L (-3-3); VBG MetHb 0.5 %; VBG O2Hb 95.1 %; VBG OXYGEN SATURATION 97.5 %; VBG PCO2 27.3 mmHg (40-52); VBG PH 7.447 (7.31-7.41); VBG PO2 106.4 mmHg (30-50); VBG TOTAL HEMOGLOBIN 16.6 G/dL (13.5-18.0); VENT MODE, VBG ROOM AIR 21%
[2023-09-25] MEDS ORDERED: LORAZEPAM INJ 2 MG/ML VIAL IV ONE ×2 (17:00→23:30)
[2023-09-25] MEDS ORDERED: LORAZEPAM INJ 2 MG/ML VIAL ONE ×2 (17:24→23:05)
[2023-09-25 18:28] LABS: ANISOCYTOSIS 1+; LYMPHOCYTES % (MANUAL) 33 % (16-48); MONOCYTES % (MANUAL) 3 % (0-11.0); NEUTROPHILS % (MANUAL) 64 (42-76); PLATELET ESTIMATE DECREASED
[2023-09-25 18:42] LABS: CALCIUM, SERUM 7.2 mg/dL (8.5-10.1); CREATININE 0.5 mg/dL (0.6-1.3); POTASSIUM 3.5 mmol/L (3.5-5.1)
[2023-09-25 21:42] LABS: APPEARANCE,URINE SLIGHTLY CLOUDY (CLEAR); BILIRUBIN,URINE NEGATIVE (NEGATIVE); BLOOD, URINE TRACE-INTA Ery/uL (NEGATIVE); COLOR,URINE YELLOW (YELLOW); KETONES,URINE 1+ mg/dL (NEGATIVE); LEUKOCYTE ESTERASE ,URINE NEGATIVE (NEGATIVE); NITRITE, URINE POSITIVE (NEGATIVE); PROTEIN,URINE 1+ mg/dl (NEGATIVE); UGLUCOSE 2+ mg/dL (NEGATIVE)
[2023-09-25 21:59] LABS: ADD URINE CULTURE YES; BACTERIA,URINE 4+ /HPF (None Seen); WBC,URINE 0-2 /HPF (0-3)
[2023-09-25 22:19] LABS: AMPHETAMINE, URINE NEGATIVE (NEGATIVE); BARBITURATE, URINE NEGATIVE (NEGATIVE); BENZODIAZEPINE, URINE NEGATIVE (NEGATIVE); CANNABINOID, URINE NEGATIVE (NEGATIVE); COCCAINE, URINE NEGATIVE (NEGATIVE); OPIATE, URINE NEGATIVE (NEGATIVE); PHENCYCLIDINE SCREEN,URINE NEGATIVE (NEGATIVE)
[2023-09-25] MEDS ORDERED: CEPH500C2 PO (23:28)
[2023-09-25] MEDS ORDERED: ONDANSETRON HCL/PF - ER 4 MG/2 ML VIAL IV ONE (23:30)
[2023-09-26 03:26] VITALS: BP 130/88; TEMP 98.5; O2SAT 98
== END 2023-09-26 03:26 | disposition home or self-care (01) ==
LOC: ER 15:20
DX: N39.0 Urinary tract infection, site not specified (principal); R45.1 Restlessness and agitation; E11.9 Type 2 diabetes mellitus without complications; F17.200 Nicotine dependence, unspecified, uncomplicated; Z79.899 Other long term (current) drug therapy; Z60.2 Problems related to living alone
CPT/HCPCS: 99284; 96374; 96361; 96375; 93005; 82803 ×2; 96376; 85025; 80048 ×2; 82550; 87086; 83605 ×2; 83690; 80076; 83935; 85007; 81001; 36415; 82962 ×3; 36600; 80143; 80320; 80179; 80307; J2060 ×2; J2405 ×3; J7030; G0480

== ENCOUNTER 2023-09-30 14:11 | Emergency (ER) | payer MEDICAID ==
[~2023-09-30] VITALS: Ht 172.7 cm; Wt 97.5 kg
[~2023-09-30 14:11] MED LIST changes: +CEPH500C2 PO
[2023-09-30 14:29] VITALS: BP 120/75; TEMP 98.2; O2SAT 100
== END 2023-09-30 14:30 | disposition home or self-care (01) ==
LOC: ER 14:13
DX: F10.129 Alcohol abuse with intoxication, unspecified (principal); F41.0 Panic disorder [episodic paroxysmal anxiety]; E11.9 Type 2 diabetes mellitus without complications; Z60.2 Problems related to living alone; Z79.84 Long term (current) use of oral hypoglycemic drugs; Z79.899 Other long term (current) drug therapy; Y90.9 Presence of alcohol in blood, level not specified